=== PATIENT | female | born 1990 | race Caucasian/White ===

== ENCOUNTER 2022-09-24 08:20 | Emergency (ER) | payer OTHER ==
[~2022-09-24] VITALS: Ht 162.6 cm; Wt 108.9 kg
[2022-09-24 08:38] VITALS: BP 102/69
[2022-09-24 09:38] LABS: BASOPHILS % (AUTO) 0.2 % (0.0-2.0); EOSINOPHILS % (AUTO) 3.9 % (0.0-6.0); HEMATOCRIT 35 % (33-45); HEMOGLOBIN 11.7 g/dL (11.5-14.8); LYMPHOCYTES # (AUTO) 0.9 K/uL (0.8-4.8); LYMPHOCYTES % (AUTO) 18.2 % (20.0-44.0); MEAN CORPUSCULAR HGB CONC 34 g/dl (31.0-36.0); MEAN CORPUSCULAR VOLUME 86 fL (82-100); MONOCYTES # (AUTO) 0.5 K/uL (0.1-1.30); MONOCYTES % (AUTO) 10.2 % (2.0-12.0); NEUTROPHILS # (AUTO) 3.2 K/uL (1.8-8.9); NEUTROPHILS % (AUTO) 67.5 % (43.0-81.0); PLATELET COUNT (AUTO) 237 K/uL (150-450); RED BLOOD CELL COUNT(AUTO) 4.03 MIL/uL (4.0-5.2); WHITE BLOOD COUNT (AUTO) 4.7 K/uL (4.3-11.0)
[2022-09-24 09:55] LABS: ALBUMIN 3.8 g/dL (3.4-5.0); BILIRUBIN,DIRECT 0.1 mg/dL (0.0-0.2); BILIRUBIN,TOTAL 0.4 mg/dL (0.2-1.0); POTASSIUM 4.1 mmol/L (3.5-5.1); TOTAL PROTEIN, SERUM 7.7 g/dL (6.4-8.2)
[2022-09-24 10:55] LABS: BILIRUBIN,URINE NEGATIVE (NEGATIVE); COLOR,URINE YELLOW (YELLOW); LEUKOCYTE ESTERASE ,URINE NEGATIVE (NEGATIVE); NITRITE, URINE NEGATIVE (NEGATIVE); PH,URINE 6.5 (5.0-8.0); PROTEIN,URINE NEGATIVE (NEGATIVE); UGLUCOSE NEGATIVE (NEGATIVE); UROBILINOGEN,URINE 0.2 EU/dL (0.2)
--- NOTE | 2022-09-24 11:06 | NUR ---
TAKEN TO CT VIA ANGIE
[2022-09-24] MEDS ORDERED: IBUP-1955 PO (11:58)
--- NOTE | 2022-09-24 12:05 | NUR ---
Patient discharged to home in stable condition. Written and verbal after care instructions given. Patient verbalizes understanding of instruction.
[2022-09-25] MEDS ORDERED: VALA100026 PO (13:10)
[2022-09-25] MEDS ORDERED: HYDR-4303 PO (13:10)
== END 2022-09-24 12:05 | disposition home or self-care (01) ==
LOC: ER 08:24
DX: R10.32 Left lower quadrant pain (principal); M54.50 Low back pain, unspecified; J45.909 Unspecified asthma, uncomplicated
CPT/HCPCS: 36415; 76770-TC; 76856-TC; 80048-TC; 80076-TC; 83690-TC; 84703-TC; 85025-TC; 87086-TC

== ENCOUNTER 2022-09-25 12:29 | Emergency (ER) | payer OTHER ==
[~2022-09-25] VITALS: Ht 170.2 cm; Wt 113.4 kg
[~2022-09-25 12:29] MED LIST: IBUP-1955 PO
[2022-09-25 12:56] VITALS: BP 107/75
--- NOTE | 2022-09-25 12:57 | NUR ---
"was seen here yesterday for left lower back pain- work up negative now have rash" AMBULATORY, PLACED ON BED, BREATHING EVEN AND UNLABORED.
[2022-09-25] MEDS ORDERED: IV NS 0.9% 1,000 ML BAG IV ONE (13:00)
--- NOTE | 2022-09-25 13:00 | NUR ---
MILIT[employer] TECHNOLOG[employer] SPECIALIST AT BEDSIDE
[2022-09-25] MEDS ORDERED: HYDROCODONE/APAP 5/325MG TABLET ONE (13:05)
[2022-09-25] MEDS ORDERED: HYDR-4303 PO (13:10)
[2022-09-25] MEDS ORDERED: VALA100026 PO (13:10)
--- NOTE | 2022-09-25 13:14 | NUR ---
URINE SAMPLE SENT [facility]
[2022-09-25] MEDS ORDERED: HYDROCODONE/APAP 5/325MG TABLET PO ONE (13:30)
--- NOTE | 2022-09-25 13:34 | NUR ---
Patient discharged to home in stable condition. Written and verbal after care instructions given. Patient verbalizes understanding of instruction.
== END 2022-09-25 13:34 | disposition home or self-care (01) ==
LOC: ER 12:40
DX: B02.9 Zoster without complications (principal); J45.909 Unspecified asthma, uncomplicated